=== PATIENT | female | born 1965 | race Caucasian/White ===

== ENCOUNTER 2017-06-12 12:04 | Day surgery (SDC) | payer BC ==
[~2017-06-12] VITALS: Ht 162.6 cm; Wt 80.3 kg
[~2017-06-12 12:04] MED LIST: ACETAMINOPHEN-1 EACH PO; AMLO5 PO; COLCRYS0.6 MG PO; CYCL10; CYCL10 PO; Estroven Max400 MCG; FAMO20 PO; FLUC150A; FLUC200 PO; FURO40 PO; GEMF600 PO; HYDACE5 PO; IBUP800; IBUP800 PO; LOSARTAN POTAS100 MG PO; LOVA40; METO50ER PO; NAPR500; NAPR500 PO; Norco 5-325 Ta1 EACH PO; OMEP20ER; OXYACE5T PO; Omeprazole20 M1; PANT40 PO; PENVK500 PO; POTA10T PO; RXAMOX500 PO; RXHYDACE PO; RXPENVK250 PO; RXPROACE PO; RXPROM25 PO; Roxicodone5 MG PO; SULTRIDS; SULTRIDS PO; Zofran Odt4 MG SL
== END 2017-06-12 13:45 | disposition home or self-care (01) ==
LOC: ORSCSDS 12:04
PROVIDERS: Internal Medicine Gastroenterology
PROC: 0DBE8ZX Excision of Large Intestine, Via Natural or Artificial Opening Endoscopic, Diagnostic (ICD-10-PCS; principal; 2017-06-12 13:15)
DX: R19.7 Diarrhea, unspecified (principal); K64.8 Other hemorrhoids; Z80.0 Family history of malignant neoplasm of digestive organs; I10 Essential (primary) hypertension; Z87.891 Personal history of nicotine dependence; Z79.899 Other long term (current) drug therapy
CPT/HCPCS: 88305; J2250; J7120

== ENCOUNTER → 2017-09-07 | Outpatient (CLI) | payer BC | LOC: LAB SHORT 15:16 → PLD 15:16 | DX: R21 Rash and other nonspecific skin eruption (principal) | CPT/HCPCS: 88312 ==

== ENCOUNTER → 2017-09-13 | Outpatient (CLI) | payer BC | LOC: LAB SHORT 17:42 → LAB 17:42 | DX: Z48.817 Encounter for surgical aftercare following surgery on the skin and subcutaneous tissue (principal); L08.9 Local infection of the skin and subcutaneous tissue, unspecified | CPT/HCPCS: 87070; 87077; 87147; 87186; 87205 ==

== ENCOUNTER 2020-11-03 10:25 | Day surgery (SDC) | payer OTHER ==
[~2020-11-03] VITALS: Ht 162.6 cm; Wt 64.7 kg
[~2020-11-03 10:25] MED LIST changes: +AVIANE-28 TABL1 EACH; +ERGO400 PO; +PROG100 PO
== END 2020-11-03 12:32 | disposition home or self-care (01) ==
LOC: ORSCSDS 10:25
PROVIDERS: Internal Medicine Gastroenterology
PROC: 0DBP8ZX Excision of Rectum, Via Natural or Artificial Opening Endoscopic, Diagnostic (ICD-10-PCS; principal; 2020-11-03 11:45)
DX: R19.5 Other fecal abnormalities (principal); D12.8 Benign neoplasm of rectum; Z80.0 Family history of malignant neoplasm of digestive organs; K57.30 Diverticulosis of large intestine without perforation or abscess without bleeding; L85.9 Epidermal thickening, unspecified; K64.8 Other hemorrhoids; I10 Essential (primary) hypertension; Z79.899 Other long term (current) drug therapy
CPT/HCPCS: 88305; J2704; J7120

== ENCOUNTER 2021-02-28 06:16 | Emergency (ER) | payer OTHER ==
[~2021-02-28] VITALS: Ht 162.6 cm; Wt 67.1 kg
[2021-02-28 07:00] LABS: BASOPHILS ABSOLUTE AUTO 0.03 K/mm3 (0.00-0.23); BASOPHILS PERCENT AUTO 1 % (0-2); EOSINOPHILS ABSOLUTE AUTO 0.14 K/mm3 (0.00-0.68); EOSINOPHILS PERCENT AUTO 2 % (0-6); Hematocrit 38.5 % (33.0-51.0); Hemoglobin 12.9 g/dL (11.5-16.0); IMMATURE GRAN ABSOLUTE AUTO 0.03 K/mm3 (0.00-0.10); IMMATURE GRAN PERCENT AUTO 1 % (0-1); LYMPHOCYTES ABSOLUTE AUTO 1.12 K/mm3 (0.84-5.20); LYMPHOCYTES PERCENT AUTO 17 % (21-46); MONOCYTES ABSOLUTE AUTO 0.48 K/mm3 (0.16-1.47); MONOCYTES PERCENT AUTO 7 % (4-13); Mean Corpuscular HGB 30.6 pg (26.0-34.0); Mean Corpuscular HGB Conc 33.5 g/dL (31.5-36.5); Mean Corpuscular Volume 91 fL (80-100); Mean Platelet Volume 10.2 fL (9.1-12.4); NEUTROPHILS ABSOLUTE AUTO 4.86 K/mm3 (1.96-9.15); NEUTROPHILS PERCENT AUTO 73 % (41-73); Platelet Count 216 K/mm3 (150-400); RDW Standard Deviation 40.1 fL (35.1-46.3); Red Blood Cell Count 4.22 M/mm3 (3.80-5.20); White Blood Cell Count 6.66 K/mm3 (4.00-11.30)
[2021-02-28 07:11] LABS: Alanine Aminotransfer (ALT/SGP 26 U/L (12-78); Albumin, Blood 3.4 g/dL (3.4-5.0); Albumin/Globulin Ratio 0.8 (0.8-1.8); Alk Phos 108 U/L (50-136); Anion Gap 6 mmol/L (6-16); Aspartate Aminotrans (AST/SGOT 28 U/L (12-37); Bilirubin, Total 0.3 mg/dL (0.1-1.0); Blood Urea Nitrogen 14 mg/dL (8-24); Bun/Creatinine Ratio 20.3 (12.0-20.0); CO2, Blood 25 mmol/L (21-32); Calcium, Blood 8.9 mg/dL (8.5-10.1); Chloride, Blood 109 mmol/L (98-108); Creatinine, Blood 0.69 mg/dL (0.40-1.00); Globulin, Blood 4.1 g/dL (2.2-4.0); Glomerular Filtration Rate >60 (60-); Glucose, Blood 121 mg/dL (70-99); Potassium, Blood 3.5 mmol/L (3.5-5.5); Sodium, Blood 140 mmol/L (136-145); Total Protein, Blood 7.5 g/dL (6.4-8.2)
[2021-02-28] MEDS ORDERED: AMOCLA875 PO (10:28)
== END 2021-02-28 10:55 | disposition home or self-care (01) ==
LOC: ER 06:16
PROVIDERS: Emergency Medicine
DX: K51.00 Ulcerative (chronic) pancolitis without complications (principal); I10 Essential (primary) hypertension; E78.00 Pure hypercholesterolemia, unspecified; Z88.8 Allergy status to other drugs, medicaments and biological substances; Z79.899 Other long term (current) drug therapy
CPT/HCPCS: 36415; 74177; 76705; 80053; 83690; 85025; 96361; 96374; 96375; 99284-25; A9270; J2405; J3010; J7030; Q9967

== ENCOUNTER 2021-05-27 12:48 | Day surgery (SDC) | payer OTHER ==
[~2021-05-27] VITALS: Ht 162.6 cm; Wt 66.7 kg
[~2021-05-27 12:48] MED LIST changes: +AMOCLA875 PO
[2021-05-27] MEDS ORDERED: LOVA20 PO (13:28)
--- NOTE | 2021-05-27 14:28 | NUR ---
05/27/21 1428 Jake Lutz BUPIVACAINE 0.5% 30 MLS MIXED W/ EPI 0.15 ML PER ORDER TO CONSTITUTE BUPIVACAINE 0.5% 1:200,000 FOR INJECTION AT OPSITE BY DR PINA
--- NOTE | 2021-05-27 15:21 | NUR ---
05/27/21 1521 Zoraida Cotton PT. VERBALIZES HAVING A SORE THROAT. PT. INSTRUCTED SHE HAD AN AIRWAY IN & COULD HAVE A SORETHROAT FOR A DAY OR SORE BUT IN SD SHE COULD HAVE SOMETHING TO DRINK. NO NAUSEA. PT. VERBALIZES LEFT BIG TOE HURTS A LITTLE. DESCRIBES "ACHY" RATING A "4". PT. AFRAID PAIN MEDICATION MAY MAKE HER SICK. WILL TAKE PT. TO SD & REASSESS IF PT. WANTS ANY PAIN MED.
--- NOTE | 2021-05-27 16:10 | NUR ---
05/27/21 1610 Zoraida Cotton PT. MEDICATED WITH FENTANYL FOR LEFT TOE PAIN. PT. VERBALIZES BETTER AFTER FENTANYL GIVEN FROM "6" DOWN TO A "3". PT. ALSO MEDICATED WITH ONE TABLET OF HYDROCODONE/APAP PER DR.ORDER.
== END 2021-05-27 17:05 | disposition home or self-care (01) ==
LOC: ORSCSDS 12:48
PROVIDERS: Podiatrist Foot & Ankle Surgery
PROC: 0SGQ04Z Fusion of Left Toe Phalangeal Joint with Internal Fixation Device, Open Approach (ICD-10-PCS; principal; 2021-05-27 14:00)
PROC: 0QSP04Z Reposition Left Metatarsal with Internal Fixation Device, Open Approach (ICD-10-PCS; principal; 2021-05-27 14:00)
DX: M20.42 Other hammer toe(s) (acquired), left foot (principal); M21.962 Unspecified acquired deformity of left lower leg; I10 Essential (primary) hypertension; E78.00 Pure hypercholesterolemia, unspecified; F41.9 Anxiety disorder, unspecified; Z79.899 Other long term (current) drug therapy
CPT/HCPCS: A9270; C1713; C1769; J0171; J0690; J2250; J2704; J3010; J7120

== ENCOUNTER → 2023-04-09 | Outpatient (CLI) | payer OTHER ==
[~2023-04-09] MED LIST changes: +LOVA20 PO
[2023-04-11 11:20] LABS: Stool Occult Bld Immuno 1 Negative (NEGATIVE)
== END ==
LOC: LAB SHORT 10:55 → LAB 10:55 → LAB FUT 04-09 12:50
PROVIDERS: Family Medicine
DX: R19.5 Other fecal abnormalities (principal)
CPT/HCPCS: 82274